=== PATIENT | male | born 1955 | race African-American/Black ===

== ENCOUNTER 2021-10-15 15:12 | Inpatient (IN) ==
[2021-10-15 15:54] LABS: ABS Eosinophils 0.1 10^3/ul (0-0.6); ABS Lymphocytes 1.2 10^3/ul (1.0-4.8); ABS Monocytes 0.3 10^3/ul (0-0.8); ABS Neutrophils 3.9 10^3/ul (1.5-7.7); Eosinophil % 1.9 %; Hematocrit 43 % (42-52); Hemoglobin 14.7 g/dL (14.0-18.0); Lymphocyte % 22.2 %; Mean Corpuscular HGB Conc 34 g/dL (31-36); Mean Corpuscular Hemoglobin 31 pg (27-31); Mean Corpuscular Volume 90 fL (80-94); Platelet Count 187 10^3/uL (150-450); Red Blood Count 4.81 10^6 /uL (4.18-5.48); Red Cell Distribution Width 13 % (10-15); White Blood Count 5.6 10^3/uL (3.5-10.8)
[2021-10-15 16:24] LABS: INR 1.12 (0.86-1.15)
[2021-10-15 16:43] LABS: Albumin 4.4 g/dL (3.2-5.2); Albumin/Globulin Ratio 1.6 (1-3); Calcium 9.3 mg/dL (8.6-10.3); Globulin 2.8 g/dL (2-4); Potassium 3.8 mmol/L (3.5-5.0); Total Bilirubin 0.6 mg/dL (0.2-1.0); Total Protein 7.2 g/dL (6.4-8.9)
[2021-10-15 17:17] LABS: High Sensitivity Troponin 1 Hr 44 pg/mL (<20)
[2021-10-15] MEDS ORDERED: Thiamine 100 MG/ML 2 ml VIAL (200 mg) IM ONE (18:07)
[2021-10-15] MEDS ORDERED: Lorazepam PYXIS KEY PRN ×2 (19:59→20:00)
[2021-10-15] MEDS ORDERED: LORazepam 2 mg VIAL 1 ml IV PUSH ONE (19:59)
[2021-10-15 20:33] LABS: Urine Benzodiazepine Screen None Detected (None Detect); Urine Cannabinoids Screen None Detected (None Detect); Urine Opiates Screen None Detected (None Detect)
[2021-10-15] MEDS: LORazepam 2 mg VIAL 1 ml IV PUSH PRN ×2 (21:07→23:20)
[2021-10-15 22:55] LABS: HDL Cholesterol 61.5 mg/dL
[2021-10-15] MEDS: Enoxaparin 40 MG/0.4 ML SYR SUBCUT SCH (23:01)
[2021-10-15] MEDS: Nicotine PATCH 14 MG/24 HR PATCH TRANSDERM SCH (23:01)
[2021-10-15 23:07] LABS: PSA Screening Total 0.851 ng/mL (0-4.000)
[2021-10-15 23:10] LABS: TSH Ultra Thyroid Stim Horm 2.13 mcIU/mL (0.34-5.60)
[2021-10-15] MEDS: Lidocaine PATCH 5% PATCH TRANSDERM SCH (23:24)
[2021-10-15] MEDS: Thiamine 100 MG/ML 2 ml VIAL 500 MG in NS 0.9% 250 ml 250 ML IV SCH (23:30)
[2021-10-16 06:54] LABS: ABS Eosinophils 0.1 10^3/ul (0-0.6); ABS Lymphocytes 1.5 10^3/ul (1.0-4.8); ABS Monocytes 0.5 10^3/ul (0-0.8); Eosinophil % 1.1 %; Hematocrit 44 % (42-52); Hemoglobin 14.9 g/dL (14.0-18.0); Mean Corpuscular HGB Conc 34 g/dL (31-36); Mean Corpuscular Hemoglobin 31 pg (27-31); Mean Corpuscular Volume 92 fL (80-94); Mean Platelet Volume 8.2 fL (7.4-10.4); Nucleated Red Blood Cells % 0.1; Platelet Count 209 10^3/uL (150-450); Red Cell Distribution Width 13 % (10-15); White Blood Count 9.1 10^3/uL (3.5-10.8)
[2021-10-16 06:58] LABS: INR 1.1 (0.86-1.15)
[2021-10-16 07:09] LABS: Calcium 9.3 mg/dL (8.6-10.3); Potassium 3.8 mmol/L (3.5-5.0); eGFR CKD-EPI 86.1 (>60)
[2021-10-16] MEDS ORDERED: Thiamine 100 MG/ML 2 ml VIAL 100 MG, Folic Acid IV 1 MG, Multiple Vitamin IV ADULT 10 M... IV ONE (08:09)
[2021-10-16] MEDS ORDERED: Dextrose 50% Syringe 50 ml 25 GM/50 ML SYRINGE IV PUSH PRN (08:10)
[2021-10-16] MEDS ORDERED: Cyanocobalamin INJ 1,000 MCG/ML VIAL 1 ML VIAL IM ONE (08:51)
[2021-10-16] MEDS: Multivitamins/Minerals TAB PO SCH (09:27)
[2021-10-16] MEDS: Thiamine 100 MG/ML 2 ml VIAL 500 MG in NS 0.9% 250 ml 250 ML IV SCH ×3 (09:28→23:35)
[2021-10-16] MEDS: Lidocaine PATCH 5% PATCH TRANSDERM SCH (09:28)
[2021-10-16] MEDS: Nicotine PATCH 14 MG/24 HR PATCH TRANSDERM SCH (09:36)
[2021-10-16] MEDS: Enoxaparin 40 MG/0.4 ML SYR SUBCUT SCH (21:47)
[2021-10-17] MEDS: LORazepam 2 mg VIAL 1 ml IV PUSH PRN (02:12)
[2021-10-17] MEDS ORDERED: hydrALAZINE 20 mg/ml 1 ML Vial IV IV SLOW PU ONE (03:11)
[2021-10-17 06:32] LABS: ABS Eosinophils 0.1 10^3/ul (0-0.6); ABS Lymphocytes 1.5 10^3/ul (1.0-4.8); ABS Monocytes 0.5 10^3/ul (0-0.8); ABS Neutrophils 4.9 10^3/ul (1.5-7.7); Eosinophil % 1.3 %; Hematocrit 45 % (42-52); Hemoglobin 15.3 g/dL (14.0-18.0); Lymphocyte % 21.6 %; Mean Corpuscular HGB Conc 34 g/dL (31-36); Mean Corpuscular Hemoglobin 31 pg (27-31); Mean Corpuscular Volume 91 fL (80-94); Platelet Count 177 10^3/uL (150-450); Red Blood Count 4.91 10^6 /uL (4.18-5.48); Red Cell Distribution Width 13 % (10-15)
[2021-10-17 06:55] LABS: Calcium 8.9 mg/dL (8.6-10.3); Potassium 3.6 mmol/L (3.5-5.0); eGFR CKD-EPI 98.1 (>60)
[2021-10-17] MEDS: Thiamine 100 MG/ML 2 ml VIAL 500 MG in NS 0.9% 250 ml 250 ML IV SCH ×3 (09:38→23:59)
[2021-10-17] MEDS: Multivitamins/Minerals TAB PO SCH (09:41)
[2021-10-17] MEDS: Lidocaine PATCH 5% PATCH TRANSDERM SCH (09:42)
[2021-10-17] MEDS: Nicotine PATCH 14 MG/24 HR PATCH TRANSDERM SCH (09:43)
[2021-10-17] MEDS: Enoxaparin 40 MG/0.4 ML SYR SUBCUT SCH (21:07)
[2021-10-18 05:45] LABS: ABS Eosinophils 0.2 10^3/ul (0-0.6); ABS Lymphocytes 1.5 10^3/ul (1.0-4.8); ABS Monocytes 0.4 10^3/ul (0-0.8); ABS Neutrophils 3.8 10^3/ul (1.5-7.7); Eosinophil % 3.5 %; Hematocrit 42 % (42-52); Hemoglobin 14.4 g/dL (14.0-18.0); Lymphocyte % 24.9 %; Mean Corpuscular HGB Conc 34 g/dL (31-36); Mean Corpuscular Hemoglobin 31 pg (27-31); Mean Corpuscular Volume 91 fL (80-94); Mean Platelet Volume 8.1 fL (7.4-10.4); Platelet Count 172 10^3/uL (150-450); Red Blood Count 4.65 10^6 /uL (4.18-5.48); Red Cell Distribution Width 13 % (10-15); White Blood Count 5.9 10^3/uL (3.5-10.8)
[2021-10-18 06:18] LABS: Calcium 8.9 mg/dL (8.6-10.3); Potassium 3.7 mmol/L (3.5-5.0); eGFR CKD-EPI 99.6 (>60)
[2021-10-18] MEDS: Multivitamins/Minerals TAB PO SCH (08:26)
[2021-10-18] MEDS: Lidocaine PATCH 5% PATCH TRANSDERM SCH (08:29)
[2021-10-18] MEDS: Nicotine PATCH 14 MG/24 HR PATCH TRANSDERM SCH (08:31)
[2021-10-18] MEDS ORDERED: Regadenoson 0.4 MG/5 ML SYRINGE ONE (13:40)
[2021-10-18] MEDS ORDERED: Thiamine 100 MG/ML 2 ml VIAL 250 MG in NS 0.9% 100 ml BAG 100 ML IV SCH (21:00)
[2021-10-18] MEDS: Enoxaparin 40 MG/0.4 ML SYR SUBCUT SCH (22:25)
[2021-10-19 06:44] LABS: ABS Eosinophils 0.2 10^3/ul (0-0.6); ABS Lymphocytes 1.6 10^3/ul (1.0-4.8); ABS Monocytes 0.5 10^3/ul (0-0.8); Hematocrit 43 % (42-52); Hemoglobin 14.6 g/dL (14.0-18.0); Lymphocyte % 30.1 %; Mean Corpuscular HGB Conc 34 g/dL (31-36); Mean Corpuscular Hemoglobin 31 pg (27-31); Mean Corpuscular Volume 91 fL (80-94); Mean Platelet Volume 8.4 fL (7.4-10.4); Platelet Count 172 10^3/uL (150-450); Red Cell Distribution Width 13 % (10-15); White Blood Count 5.4 10^3/uL (3.5-10.8)
[2021-10-19 07:01] LABS: Calcium 9.1 mg/dL (8.6-10.3); Potassium 3.8 mmol/L (3.5-5.0); eGFR CKD-EPI 99.2 (>60)
[2021-10-19] MEDS: Lidocaine PATCH 5% PATCH TRANSDERM SCH (09:18)
[2021-10-19] MEDS: Multivitamins/Minerals TAB PO SCH (09:19)
[2021-10-19] MEDS: Nicotine PATCH 14 MG/24 HR PATCH TRANSDERM SCH (09:54)
[2021-10-19 14:25] VITALS: BP 153/91
== END 2021-10-19 15:42 | disposition home or self-care (01) | DRG 641 ==
LOC: ED 15:12 → EDHOLD 19:46 → SUATTDRO 19:46 → MEDTELE 22:37
PROVIDERS: ADMIT Student in an Organized Health Care Education/Training Program; ATTEND Internal Medicine